=== PATIENT | female | born 1975 | race Caucasian/White ===

== ENCOUNTER 2017-05-18 18:11 | Emergency (ER) | payer BC ==
[~2017-05-18] VITALS: Ht 162.6 cm; Wt 117.9 kg
[2017-05-18 18:52] VITALS: BP 142/67
[2017-05-18] MEDS ORDERED: TRIAMCINOLONE 40MG/ML 1ML VIAL IM ONE ×2 (21:45→22:00)
[2017-05-18] MEDS ORDERED: cefTRIAXone SOD 1,000 MG VL IM ONE ×2 (21:45→22:00)
[2017-05-18] MEDS ORDERED: LIDOCAINE 1% (LOCAL ANESTH.) PF 5ml SDV ONE (22:11)
== END 2017-05-18 22:38 | disposition home or self-care (01) ==
LOC: ER 18:11
DX: J32.9 Chronic sinusitis, unspecified (principal); J45.909 Unspecified asthma, uncomplicated
CPT/HCPCS: 96372; 99284; J0696; J3301

== ENCOUNTER 2018-11-15 19:42 | Emergency (ER) | payer BC, MEDICAID ==
[~2018-11-15] VITALS: Ht 162.6 cm; Wt 106.6 kg
[2018-11-15 19:45] VITALS: BP 156/88
== END 2018-11-15 21:18 | disposition left against medical advice (07) ==
LOC: EDBD 19:42 → ER 19:45
DX: Z04.1 Encounter for examination and observation following transport accident (principal); Z53.21 Procedure and treatment not carried out due to patient leaving prior to being seen by health care provider

== ENCOUNTER → 2022-02-22 | Outpatient (CLI) | payer MEDICAID | END | disposition home or self-care (01) | LOC: XYW 14:00 | PROVIDERS: ATTEND Internal Medicine | DX: Z01.810 Encounter for preprocedural cardiovascular examination (principal); I51.7 Cardiomegaly | CPT/HCPCS: 93306 ==